=== PATIENT | male | born 1975 | race Two or more races ===

== ENCOUNTER 2022-11-25 21:58 | Emergency (ER) | payer MEDICAID, OTHER ==
[~2022-11-25] VITALS: Ht 160 cm; Wt 69.0 kg
[2022-11-25 22:14] VITALS: BP 125/74
[2022-11-26] MEDS ORDERED: ACET-1158 PO (02:43)
[2022-11-26] MEDS ORDERED: CEPH-510 PO (02:43)
== END 2022-11-26 02:49 | disposition home or self-care (01) ==
LOC: ER 21:58
DX: S61.215A Laceration without foreign body of left ring finger without damage to nail, initial encounter (principal); W26.0XXA Contact with knife, initial encounter; Y93.89 Activity, other specified; Y92.89 Other specified places as the place of occurrence of the external cause; Y99.8 Other external cause status
CPT/HCPCS: 12001